=== PATIENT | female | born 1980 | race Caucasian/White ===

== ENCOUNTER 2017-04-10 22:19 | Emergency (ER) | payer SELFPAY ==
[~2017-04-10] VITALS: Ht 162.6 cm; Wt 76.0 kg
[~2017-04-10 22:19] MED LIST: Z.0.NO CURRENT MEDS
[2017-04-10 22:21] VITALS: BP 131/78; PULSE 70; RESP 16; TEMP 98.7; O2SAT 100
[2017-04-11 01:14] VITALS: O2SAT 100
[2017-04-11 01:25] LABS: AUTOMATED NEUTROPHIL # 6.4 TH/MM3 (1.8-7.7); BASOPHIL % 0.3 % (0.0-2.0); EOSINOPHIL # 0.3 TH/MM3 (0-0.4); EOSINOPHIL % 2.5 % (0.0-4.0); HEMATOCRIT 39.7 % (35.0-46.0); HEMO FLAGS DIFF FINAL; LYMPH % 31.2 % (9.0-44.0); LYMPHOCYTE # 3.4 TH/MM3 (1.0-4.8); MEAN CELL VOLUME 87.4 FL (80.0-100.0); MEAN CORPUSCULAR HEMOGLOBIN 29.1 PG (27.0-34.0); MEAN CORPUSCULAR HGB CONC 33.3 % (32.0-36.0); MONO % 7.7 % (0.0-8.0); NEUT % 58.3 % (16.0-70.0); PLATELET COUNT 392 TH/MM3 (150-450); RED BLOOD COUNT 4.54 MIL/MM3 (4.00-5.30); RED CELL DISTRIBUTION WIDTH 14.2 % (11.6-17.2)
[2017-04-11 01:34] LABS: BACTERIA, URINE MOD /hpf; BLOOD, URINE SMALL (NEG); COMMENT (UR) CULTURE INDICATED; CULTURE IF INDICATED CULTURE INDICATED; GLUCOSE,URINE NEG (NEG); KETONE, URINE NEG (NEG); MUCUS URINE FEW /lpf (OCC); NITRITE,URINE NEG (NEG); PH, URINE 5.5 (5.0-8.5); SQUAMOUS EPITHELIAL CELL URINE <1 /hpf (0-5); URINE COLOR YELLOW (YELLW/STRAW)
--- NOTE | 2017-04-11 01:58 | PD ---
HPI Chief Complaint: Flank/Kidney Pain Time Seen by Provider: 00:58 Travel History International Travel<30 days: No Contact w/Intl Traveler<30days: No Traveled to known affect area: No History of Present Illness HPI The patient is a 37 year old female who presents to the [facility] emergency department with a history of right flank pain with dysuria associated with urinary frequency that began 4 days ago. Her urine is sometimes dark in color. The pain in her flank is constant. It sharp in character. The patient denies any history of fever, cough, congestion, neck pain, chest pain, shortness of breath, abdominal pain, vomiting, diarrhea, or neurologic symptoms. Her last BM was today. The patient denies having any blood in her stool or black or tarry stools. LMP: end of February. No chance of . PFSH Past Medical History Narrative Medical The patient's past medical history is significant for pyleonephritis many years ago. Diminished Hearing: No Kidney Stones: Yes Tetanus Vaccination: < 5 Years Influenza Vaccination: Yes ?: Not LMP: 03/14/17 : 3 Para: 2 : 1 Past Surgical History Narrative Surgical The patient's past surgical history is significant for appendectomy, 2 c- sections. Appendectomy: Yes Section: Yes (2) Gynecologic Surgery: Yes (2 C SECTIONS) Social History Alcohol Use: Yes (2 per week) Tobacco Use: Yes (1/2 pack per day) Substance Use: No Allergies-Medications (Allergen,Severity, Reaction): Coded Allergies: No Known Allergies (Verified , 04/11/17) Reported Meds & Prescriptions Reported Meds & Active Scripts Active Bactrim DS (Sulfamethoxazole-Trimethoprim) 800-160 Mg Tab 1 Tab PO BID Reported No Current Meds (Miscellaneous Medication) Misc Narrative Medication None. Review of Systems Except as stated in HPI: all other systems reviewed are Neg General / Constitutional: No: Fever Eyes: No: Visual changes HENT: No: Headaches Cardiovascular: No: Chest Pain or Discomfort Respiratory: No: Shortness of Breath Gastrointestinal: No: Nausea, Vomiting, Diarrhea, Abdominal Pain, Changes in Bowel Habits, Indigestion, Loss of Appetite Genitourinary: Positive: Frequency, Dysuria, Flank Pain, No: Urgency Musculoskeletal: No: Pain Skin: No Rash Neurologic: No: Weakness Psychiatric: No: Depression Endocrine: No: Polydipsia Hematologic/Lymphatic: No: Easy Bruising Physical Exam Narrative General: The patient is a well-developed well-nourished female in no acute distress. Head and Neck exam: Head is normocephalic atraumatic. Eyes: EOMI, pupils are equal round and reactive to light. Nose: Midline septum with pink mucous membranes Mouth: Dentition unremarkable. Moist mucus membranes. Posterior oropharynx is not erythematous. No tonsillar hypertrophy. Uvula midline. Airway patent. Neck: No palpable lymphadenopathy. No nuchal rigidity. No thyromegaly. Cardiovascular: Regular rate and rhythm without murmurs, gallops, or rubs. Lungs: Clear to auscultation bilaterally. No wheezes, rhonchi, or rales. Abdomen: Soft, without tenderness to palpation in all 4 quadrants of the abdomen. No guarding, rebound, or rigidity. Normal bowel sounds are audible. No tenderness on palpation of McBurney's point. Negative [place] sign. Extremities: No clubbing, cyanosis, or edema. 2+ pulses in all 4 extremities. No calf tenderness on palpation. Back: No spinous process tenderness to palpation. Right-sided CVA tenderness on palpation. Neurologic Exam: Grossly nonfocal. Skin Exam: No rash noted. Intact skin that is warm and dry. Data Data Last Documented VS Vital Signs Date Time Temp Pulse Resp B/P Pulse Ox O2 Delivery O2 Flow Rate FiO2 04/11/17 01:14 100 Room Air 04/11/17 00:29 20 04/10/17 22:21 98.7 70 131/78 Orders Complete Blood Count With Diff (04/11/17 00:58) Comprehensive Metabolic Panel (04/11/17 00:58) Lipase (04/11/17 00:58) Urinalysis - C+S If Indicated (04/11/17 00:58) Ct Abd/Pel W/O Iv Contrast (04/11/17 00:58) Iv Access Insert/Monitor (04/11/17 00:58) Ecg Monitoring (04/11/17 00:58) Oximetry (04/11/17 00:58) Ed Urine Pregnancytest Poc (04/11/17 00:58) Urine Culture (04/11/17 01:16) Sodium Chlor 0.9% 1000 Ml Inj (Ns 1000 M (04/11/17 02:30) Ketorolac Inj (Toradol Inj) (04/11/17 02:30) Ceftriaxone Inj (Rocephin Inj) (04/11/17 02:30) Potassium Chloride (Kcl) (04/11/17 02:30) Labs Laboratory Tests Test 04/11/17 01:16 White Blood Count 11.0 TH/MM3 Red Blood Count 4.54 MIL/MM3 Hemoglobin 13.2 GM/DL Hematocrit 39.7 % Mean Corpuscular Volume 87.4 FL Mean Corpuscular Hemoglobin 29.1 PG Mean Corpuscular Hemoglobin 33.3 % Concent Red Cell Distribution Width 14.2 % Platelet Count 392 TH/MM3 Mean Platelet Volume 8.2 FL Neutrophils (%) (Auto) 58.3 % Lymphocytes (%) (Auto) 31.2 % Monocytes (%) (Auto) 7.7 % Eosinophils (%) (Auto) 2.5 % Basophils (%) (Auto) 0.3 % Neutrophils # (Auto) 6.4 TH/MM3 Lymphocytes # (Auto) 3.4 TH/MM3 Monocytes # (Auto) 0.8 TH/MM3 Eosinophils # (Auto) 0.3 TH/MM3 Basophils # (Auto) 0.0 TH/MM3 CBC Comment DIFF FINAL Differential Comment Urine Color YELLOW Urine Turbidity HAZY Urine pH 5.5 Urine Specific [place] 1.020 Urine Protein 30 mg/dL Urine Glucose (UA) NEG mg/dL Urine Ketones NEG mg/dL Urine Occult Blood SMALL Urine Nitrite NEG Urine Bilirubin NEG Urine Urobilinogen LESS THAN 2.0 MG/DL Urine Leukocyte Esterase LARGE Urine RBC 44 /hpf Urine WBC /hpf Urine WBC Clumps FEW Urine Squamous Epithelial <1 /hpf Cells Urine Bacteria MOD /hpf Urine Mucus FEW /lpf Microscopic Urinalysis Comment CULTURE INDICATED Sodium Level 141 MEQ/L Potassium Level 3.3 MEQ/L Chloride Level 108 MEQ/L Carbon Dioxide Level 26.4 MEQ/L Anion Gap 7 MEQ/L Blood Urea Nitrogen 10 MG/DL Creatinine 0.76 MG/DL Estimat Glomerular Filtration 86 ML/MIN Rate Random Glucose 93 MG/DL Calcium Level 8.1 MG/DL Total Bilirubin 0.2 MG/DL Aspartate Amino Transf 12 U/L (AST/SGOT) Alanine Aminotransferase 16 U/L (ALT/SGPT) Alkaline Phosphatase 47 U/L Total Protein 6.5 GM/DL Albumin 3.1 GM/DL Lipase 190 U/L MDM Medical Decision Making Medical Screen Exam Complete: Yes Emergency Medical Condition: Yes Medical Record Reviewed: Yes Interpretation(s) Last Impressions Abdomen/Pelvis CT 04/11/17 0058 Signed Impressions: Service Date/Time: Tuesday, April 11, 2017 02:11 - CONCLUSION: Negative noncontrast CT abdomen/pelvis. No renal stones and no hydronephrosis. Ray Groves MD Differential Diagnosis Pyelonephritis, versus kidney stone, versus musculoskeletal strain Narrative Course During the course of the patients emergency department visit, the patients history, examination, and differential diagnosis were reviewed with the patient. The patient had IV access obtained and blood work sent for analysis. The patient's was on a nurse monitoring with oximetry and blood pressure monitoring. The patient was initially provided normal saline 1 L IV fluid bolus, ketorolac 15 mg IV for pain. The patients laboratory studies were reviewed and remarkable for a CBC that is within normal limits. CMP is remarkable for a potassium of 3.3 which was supplemented orally, chloride 108, GFR of 86, calcium 8.1, AST 12, albumin 3.1, lipase 190, urinalysis shows 30 protein, small occult blood, large leukocyte esterase, 44 rbc's, innumerable wbc's with few clumps, less than 1 squamous epithelial cell, moderate bacteria, culture indicated. Radiology studies were reviewed and remarkable for a CT scan of the abdomen and pelvis that shows no evidence of renal stones or hydronephrosis, no other acute abdominal. The patient's symptoms were found to be consistent with an early palate nephritis. The patient will be discharged home with a prescription for Bactrim. The patient is resting comfortably and feels better, is alert and in no distress. The patients results and examination findings were discussed with the patient. The repeat examination is unremarkable and benign. The history, exam, diagnostic testing, and current condition do not suggest any significant pathology to warrant further testing, continued ED treatment, admission, or surgical evaluation at this point. The vital signs have been stable. The patient does not have uncontrollable pain, intractable vomiting, or other significant symptoms. The patient's condition is stable and appropriate for discharge. The patient will pursue further outpatient evaluation with a primary care physician or other designated or consulting physician as indicated in the discharge instructions. The patient expressed understanding and was agreeable with this plan. The patient is resting comfortably and feels better, is alert and in no distress. The patients results and examination findings were discussed with the patient. The repeat examination is unremarkable and benign. The history, exam, diagnostic testing, and current condition do not suggest any significant pathology to warrant further testing, continued ED treatment, admission, or surgical evaluation at this point. The vital signs have been stable. The patient does not have uncontrollable pain, intractable vomiting, or other significant symptoms. The patient's condition is stable and appropriate for discharge. The patient will pursue further outpatient evaluation with a primary care physician or other designated or consulting physician as indicated in the discharge instructions. The patient expressed understanding and was agreeable with this plan. Diagnosis Primary Impression: Pyelonephritis Referrals: Primary Care Physician 2 days Patient Instructions: General Instructions, Kidney Infection (ED) Med/Other Pt SpecificInfo: Prescription(s) given Scripts Sulfamethoxazole-Trimethoprim (Bactrim DS)800-160 Mg Tab1 Tab PO BID #20 TAB Ref 0 Prov:Aleshia Covarrubias MD 04/11/17 Disposition: 01 DISCHARGE HOME Condition: Stable Aleshia Covarrubias MD Apr 11, 2017 01:58
[2017-04-11 02:15] LABS: ALT (GPT) 16 U/L (10-53); ANION GAP 7 MEQ/L (5-15); AST (GOT) 12 U/L (15-37); BICARBONATE 26.4 MEQ/L (21.0-32.0); BLOOD UREA NITROGEN 10 MG/DL (7-18); CHLORIDE 108 MEQ/L (98-107); GLOMERULAR FILTRATION RATE 86 ML/MIN (>89); POTASSIUM 3.3 MEQ/L (3.5-5.1); SODIUM (NA) 141 MEQ/L (136-145)
[2017-04-11 02:17] LABS: ALKALINE PHOSPHATASE 47 U/L (45-117); TOTAL BILIRUBIN ADULT 0.2 MG/DL (0.2-1.0)
[2017-04-11] MEDS ORDERED: cefTRIAXone INJ 1,000 MG in SODIUM CHLORIDE 0.9% INJ 100 ML IV ONE (02:30)
[2017-04-11] MEDS ORDERED: SODIUM CHLOR 0.9% 1000 ML INJ 1,000 ML IV ONE (02:30)
[2017-04-11] MEDS ORDERED: POTASSIUM CHLORIDE 20 MEQ CONTROLLED RELEASE TAB PO ONE (02:30)
[2017-04-11] MEDS ORDERED: KETOROLAC TROMETHAMINE 30 MG/ML (IVP) VIAL IV PUSH ONE (02:30)
--- NOTE | 2017-04-11 02:39 | RADRPT ---
EXAM DATE/TIME: 04/11/2017 02:11 [facility] COMPARISON: No previous studies available for comparison. INDICATIONS : Right flank pain. ORAL CONTRAST: No oral contrast ingested. RADIATION DOSE: 10.20 CTDIvol (mGy) MEDICAL HISTORY : Renal calculi. SURGICAL HISTORY : Appendectomy. section. ENCOUNTER: Initial ACUITY: 4 - 6 days PAIN SCALE: 6/10 LOCATION: Right flank TECHNIQUE: Volumetric scanning of the abdomen and pelvis was performed. Using automated exposure control and ad justment of the mA and/or kV according to patient size, radiation dose was kept as low as reasonably achievable to obtain optimal diagnostic quality images. DICOM format image data is available electro nically for review and comparison. FINDINGS: LOWER LUNGS: The visualized lower lungs are clear. LIVER: Homogeneous density within the visualized portion of the liver on this noncontrast study.. There is no dilation of the biliary tree. No calcified gallstones. SPLEEN: Normal size without lesion. PANCREAS: Within normal limits. KIDNEYS: Normal in size and shape. There is no mass, stone, or hydronephrosis. The proximal ureters are norm al in size and no calcifications along the course of either ureter. ADRENAL GLANDS: Within normal limits. VASCULAR: There is no aortic aneurysm. BOWEL/MESENTERY: Loops of small and large bowel are normal in dimension. Multiple hemoclips in the right lower quadra nt at appendectomy site. No evidence of free fluid. ABDOMINAL WALL: Within normal limits. RETROPERITONEUM: There is no lymphadenopathy. BLADDER: No wall thickening or mass. REPRODUCTIVE: The uterus is anteverted. No evidence of free fluid in the pelvis. INGUINAL: There is no lymphadenopathy or hernia. MUSCULOSKELETAL: Within normal limits for patient age. CONCLUSION: Negative noncontrast CT abdomen/pelvis. No renal stones and no hydronephrosis. Ray Groves MD on April 11, 2017 at 2:34 Board Certified Radiologist. This report was verified electronically.
[2017-04-11] MEDS ORDERED: BACT800T5 PO (03:37)
== END 2017-04-11 03:59 | disposition home or self-care (01) ==
LOC: NEPC 22:19
DX: N12 Tubulo-interstitial nephritis, not specified as acute or chronic (principal); B96.1 Klebsiella pneumoniae [K. pneumoniae] as the cause of diseases classified elsewhere; F17.200 Nicotine dependence, unspecified, uncomplicated; Z87.448 Personal history of other diseases of urinary system
CPT/HCPCS: 74176; 80053; 81001; 83690; 84703; 85025; 87077; 87086; 87186; 96365; 96375; 99285; J0696; J1885; J7030